=== PATIENT | female | born 1950 ===

== ENCOUNTER 2020-11-23 06:00 | Outpatient (RCR) | payer MEDICARE, OTHER, SELFPAY | END 2020-12-06 23:59 | disposition home or self-care (01) | LOC: MPT 06:00 | PROVIDERS: Referring Provider Internal Medicine Cardiovascular Disease; Visit Provider Internal Medicine Cardiovascular Disease | DX: M48.062 Spinal stenosis, lumbar region with neurogenic claudication (principal); M51.35 Other intervertebral disc degeneration, thoracolumbar region | CPT/HCPCS: 97110; 97140; 97162 ==